=== PATIENT | male | born 1935 | race Caucasian/White ===

== ENCOUNTER → 2017-01-10 | Day surgery (SDC) | payer MEDICARE, OTHER, MEDICAID ==
[~2017-01-10] MED LIST: ASPIRIN325 MG PO; BREO ELLIPTA 11 EACH INH; BUSPAR10 MG PO; CELEBREX200 MG; CELEXA20 MG PO; COLACE100 MG PO; COZAAR50 MG PO; DESYREL150 MG PO; DITROPAN XL5 MG PO; FLORASTOR250 MG PO; GLUCOPHAGE500 MG PO; HIPREX1 GM PO; IPRAT-ALBUT 0.5-3 ML INH; LEVAQUIN 750 M750 MG PO; LEVOTHROID (S100 MCG PO; LIPITOR20 M1 PO; METAMUCIL PACKE1 PKT PO; METAMUCIL SUGA283 GM PO; MIRALAX17 GM PO; MUCINEX600 MG PO; MYCOSTATIN OINT30 GM TOP; NORVASC5 MG PO; RISPERDAL0.5 MG PO; SINGULAIR10 MG PO; THERA-VITE W/ B1 TAB PO; TYLENOL EXTRA500 MG PO; TYLENOL325 MG PO; ULTRAM50 MG PO; VESICARE10 MG PO; XALATAN2.5 ML OPHTH; ZYLOPRIM100 MG PO
== END ==
LOC: GPOC 17:26
PROC: 009U3ZZ Drainage of Spinal Canal, Percutaneous Approach (ICD-10-PCS; principal; 2017-01-10)
DX: R41.0 Disorientation, unspecified (principal); Z88.8 Allergy status to other drugs, medicaments and biological substances; Z79.899 Other long term (current) drug therapy; Z79.82 Long term (current) use of aspirin; Z79.891 Long term (current) use of opiate analgesic